=== PATIENT | female | born 1970 | race Caucasian/White ===

== ENCOUNTER 2019-03-29 11:19 | Emergency (ER) | payer OTHER | END 2019-03-29 12:05 | disposition home or self-care (01) | LOC: EDH 11:19 | DX: H00.022 Hordeolum internum right lower eyelid (principal); E11.9 Type 2 diabetes mellitus without complications; Z88.0 Allergy status to penicillin; Z72.0 Tobacco use; Z98.890 Other specified postprocedural states ==